=== PATIENT | female | born 1995 | race African-American/Black ===

== ENCOUNTER 2016-09-28 09:54 | Emergency (ER) | payer OTHER ==
[~2016-09-28 09:54] MED LIST: DOXY100C PO; NAPR500T PO
[2016-09-28 09:55] VITALS: BP 136/82; PULSE 80; RESP 20; TEMP 99; O2SAT 99
[2016-09-28] MEDS ORDERED: BIRTH CONTROL PILLS (10:15)
[2016-09-28] MEDS ORDERED: PRENTAB75 (10:15)
--- NOTE | 2016-09-28 10:22 | PD ---
HPI Chief Complaint: Related Problem Time Seen by Provider: 10:11 Travel History International Travel<30 days: No Contact w/Intl Traveler<30days: No Traveled to known affect area: No History of Present Illness HPI 21-year-old female here for evaluation of vaginal bleeding in . The patient believes her LMP was in June of this year. Today she noticed small amount of blood in the toilet. She denies pain. No urinary symptoms. PFSH Past Medical History Medical History: Denies Significant Hx Diminished Hearing: No Immunizations Current: Yes Tetanus Vaccination: > 5 Years ?: LMP: 1- Past Surgical History Surgical History: No Previous Surgery Social History Alcohol Use: No (OCCAS) Tobacco Use: No Substance Use: No Allergies-Medications (Allergen,Severity, Reaction): Coded Allergies: No Known Allergies (Unverified , 09/28/16) Reported Meds & Prescriptions Reported Meds & Active Scripts Active Reported Calna ( Vitamin) 1 Tab Tab 1 Tab PO DAILY Review of Systems Except as stated in HPI: all other systems reviewed are Neg Physical Exam Narrative GENERAL: Well-developed, well-nourished, comfortable, no acute distress. SKIN: Focused skin assessment warm/dry. HEAD: Atraumatic. Normocephalic. EYES: Pupils equal and round. No scleral icterus. No injection or drainage. ENT: Mucous membranes pink and moist. CARDIOVASCULAR: Regular rate and rhythm. No murmur appreciated. RESPIRATORY: No accessory muscle use. Clear to auscultation. Breath sounds equal bilaterally. GASTROINTESTINAL: Abdomen soft, non-tender, nondistended. MUSCULOSKELETAL: No obvious deformities. No clubbing. No cyanosis. No edema. NEUROLOGICAL: Awake and alert. No obvious cranial nerve deficits. Motor grossly within normal limits. Normal speech. PSYCHIATRIC: Appropriate mood and affect; insight and judgment normal. Data Data Last Documented VS Vital Signs Date Time Temp Pulse Resp B/P Pulse Ox O2 Delivery O2 Flow Rate FiO2 09/28/16 09:55 99.0 80 20 136/82 99 Room Air Orders Beta Hcg (Quant/Titer) (09/28/16 10:19) Complete Blood Count With Diff (09/28/16 10:19) Comprehensive Metabolic Panel (09/28/16 10:19) Type And Screen (09/28/16 10:19) Urinalysis - C+S If Indicated (09/28/16 10:19) Ed Urine Pregnancytest Poc (09/28/16 10:19) Us Pelvis (Ques Pr/Ect)W Trans (09/28/16 ) Nitrofurantoin Monohyd Macrocr (Macrobid (09/28/16 15:30) Labs Laboratory Tests Test 09/28/16 10:49 White Blood Count 5.9 TH/MM3 Red Blood Count 4.35 MIL/MM3 Hemoglobin 13.5 GM/DL Hematocrit 39.2 % Mean Corpuscular Volume 90.1 FL Mean Corpuscular Hemoglobin 31.1 PG Mean Corpuscular Hemoglobin 34.6 % Concent Red Cell Distribution Width 13.6 % Platelet Count 163 TH/MM3 Mean Platelet Volume 9.2 FL Neutrophils (%) (Auto) 58.5 % Lymphocytes (%) (Auto) 30.1 % Monocytes (%) (Auto) 6.8 % Eosinophils (%) (Auto) 4.3 % Basophils (%) (Auto) 0.3 % Neutrophils # (Auto) 3.4 TH/MM3 Lymphocytes # (Auto) 1.8 TH/MM3 Monocytes # (Auto) 0.4 TH/MM3 Eosinophils # (Auto) 0.2 TH/MM3 Basophils # (Auto) 0.0 TH/MM3 CBC Comment DIFF FINAL Differential Comment Urine Color YELLOW Urine Turbidity CLEAR Urine pH 8.0 Urine Specific [place] 1.023 Urine Protein TRACE mg/dL Urine Glucose (UA) NEG mg/dL Urine Ketones NEG mg/dL Urine Occult Blood TRACE Urine Nitrite NEG Urine Bilirubin NEG Urine Urobilinogen LESS THAN 2.0 MG/DL Urine Leukocyte Esterase NEG Urine RBC 1 /hpf Urine WBC LESS THAN 1 /hpf Urine Squamous Epithelial 3 /hpf Cells Urine Bacteria RARE /hpf Urine Mucus FEW /lpf Microscopic Urinalysis Comment CULT NOT INDICATED Sodium Level 140 MEQ/L Potassium Level 4.6 MEQ/L Chloride Level 107 MEQ/L Carbon Dioxide Level 23.7 MEQ/L Anion Gap 9 MEQ/L Blood Urea Nitrogen 9 MG/DL Creatinine 0.64 MG/DL Estimat Glomerular Filtration 143 ML/MIN Rate Random Glucose 85 MG/DL Calcium Level 8.7 MG/DL Total Bilirubin 0.4 MG/DL Aspartate Amino Transf 36 U/L (AST/SGOT) Alanine Aminotransferase 40 U/L (ALT/SGPT) Alkaline Phosphatase 57 U/L Total Protein 7.3 GM/DL Albumin 3.8 GM/DL Human Chorionic Gonadotropin, 881 MIU/ML Quant Blood Type O POSITIVE Antibody Screen NEGATIVE Blood Bank Comment MDM Medical Decision Making Medical Screen Exam Complete: Yes Emergency Medical Condition: Yes Differential Diagnosis First trimester bleeding, ectopic , spontaneous , threatened Narrative Course Vital signs show heart rate 80, blood pressure 136/82, pulse ox 99% on room air , oral temp of 99F. CBC is unremarkable. CMP is unremarkable. Beta hCG is 881. Blood type is O+. UA shows trace occult blood, rare bacteria Pelvic ultrasound: CONCLUSION: 1. Irregular gestational sac with an abnormally enlarged yolk sac and no identifiable portal. Small amount of free fluid. Diagnostic considerations include in progress or blighted ovum. 2. Both ovaries are sonographically normal. Patient was made aware of all findings. She is resting comfortably. She is understandably tearful at the results. She has an appointment with an [facility] doctor in one week. I told her to keep this appointment. I informed her on when to return to the emergency department. Given bacteria and urine, she will be started on Macrobid. She was informed on when to return to the emergency department. She verbalizes understanding and agreement with plan. Diagnosis Primary Impression: First trimester bleeding Additional Impression: Bacteriuria Referrals: [facility] 1 week Additional Instructions: Follow-up with your [facility] doctor next week as scheduled. Return to the emergency department for worsening symptoms or any other concerns as discussed. Scripts Nitrofurantoin Monohydrate Macrocrystals (Macrobid)100 Mg Eiv691 Mg PO BID 5 Days Ref 0 Prov:Eleuterio Bashir MD 09/28/16 Disposition: 01 DISCHARGE HOME Condition: Stable Eleuterio Bashir MD Sep 28, 2016 10:22
[2016-09-28 11:01] LABS: AUTOMATED NEUTROPHIL # 3.4 TH/MM3 (1.8-7.7); BASOPHIL % 0.3 % (0.0-2.0); EOSINOPHIL # 0.2 TH/MM3 (0-0.4); EOSINOPHIL % 4.3 % (0.0-4.0); HEMATOCRIT 39.2 % (35.0-46.0); HEMO FLAGS DIFF FINAL; LYMPH % 30.1 % (9.0-44.0); LYMPHOCYTE # 1.8 TH/MM3 (1.0-4.8); MEAN CELL VOLUME 90.1 FL (80.0-100.0); MEAN CORPUSCULAR HEMOGLOBIN 31.1 PG (27.0-34.0); MEAN CORPUSCULAR HGB CONC 34.6 % (32.0-36.0); MONO % 6.8 % (0.0-8.0); NEUT % 58.5 % (16.0-70.0); PLATELET COUNT 163 TH/MM3 (150-450); RED BLOOD COUNT 4.35 MIL/MM3 (4.00-5.30); RED CELL DISTRIBUTION WIDTH 13.6 % (11.6-17.2); WHITE BLOOD COUNT 5.9 TH/MM3 (4.0-11.0)
[2016-09-28 11:18] LABS: BACTERIA, URINE RARE /hpf; BLOOD, URINE TRACE (NEG); COMMENT (UR) CULT NOT INDICATED; CULTURE IF INDICATED CULT NOT INDICATED; GLUCOSE,URINE NEG (NEG); KETONE, URINE NEG (NEG); MUCUS URINE FEW /lpf (OCC); NITRITE,URINE NEG (NEG); SQUAMOUS EPITHELIAL CELL URINE 3 /hpf (0-5); URINE COLOR YELLOW (YELLW/STRAW)
[2016-09-28 11:33] LABS: ALKALINE PHOSPHATASE 57 U/L (45-117); BETA HCG QUANT 881 MIU/ML (0-5); TOTAL BILIRUBIN ADULT 0.4 MG/DL (0.2-1.0)
[2016-09-28 11:40] LABS: ALT (GPT) 40 U/L (9-42); ANION GAP 9 MEQ/L (5-15); AST (GOT) 36 U/L (16-38); BICARBONATE 23.7 MEQ/L (21.0-32.0); BLOOD UREA NITROGEN 9 MG/DL (7-18); CHLORIDE 107 MEQ/L (98-107); GLOMERULAR FILTRATION RATE 143 ML/MIN (>89); SODIUM (NA) 140 MEQ/L (136-145)
[2016-09-28 11:41] LABS: POTASSIUM 4.6 MEQ/L (3.5-5.1)
[2016-09-28] MEDS ORDERED: CALNTAB PO (14:17)
--- NOTE | 2016-09-28 15:04 | RADRPT ---
EXAM DATE/TIME: 09/28/2016 13:12 [facility] COMPARISON: No previous studies available for comparison. INDICATIONS : Vaginal bleeding. LAB(S): [facility] MEDICAL HISTORY : . SURGICAL HISTORY : None. ENCOUNTER: Initial ACUITY: 1 day PAIN SCORE: 0/10 LOCATION: Bilateral pelvis MEASUREMENTS: UTERUS: 7.6 x 6.2 x 5.8 cm ENDOMETRIAL STRIPE: 13 mm RIGHT OVARY: 3.0 x 2.8 x 1.7 cm LEFT OVARY: 2.8 x 3.0 x 1.7 cm FREE FLUID: Yes CROWN RUMP LENGTH: not seen = WKS DAYS FHR: not seen BPM FINDINGS: UTERUS: The myometrium has homogeneous echotexture without mass. There is an irregular gestational sac measu ring 3.2 x 2.4 x 1.4 cm corresponding to a gestational age of 6 weeks and 6 days. No pole is id entified but there is an abnormally enlarged yolk sac RIGHT OVARY: Ovary contains no mass or significant cystic lesion. LEFT OVARY: Ovary contains no mass or significant cystic lesion. MISCELLANEOUS: No free fluid. CONCLUSION: 1. Irregular gestational sac with an abnormally enlarged yolk sac and no identifiable portal. S mall amount of free fluid. Diagnostic considerations include in progress or blighted ovum. 2. Both ovaries are sonographically normal. Maged Hi MD on September 28, 2016 at 14:58 Board Certified Radiologist. This report was verified electronically.
[2016-09-28] MEDS ORDERED: MACR100C2 PO (15:26)
[2016-09-28] MEDS ORDERED: NITROFURANTOIN MONOHYD MACROCR 100 MG CAP PO ONE (15:30)
== END 2016-09-28 15:38 | disposition home or self-care (01) ==
LOC: NEPD 09:54
DX: O46.91 Antepartum hemorrhage, unspecified, first trimester (principal); R82.71 Bacteriuria; Z3A.00 Weeks of gestation of pregnancy not specified
CPT/HCPCS: 76700; 76817; 80053; 81001; 84702; 84703; 85025; 86850; 86900; 86901